=== PATIENT | female | born 1940 | race Caucasian/White ===

== ENCOUNTER 2023-12-17 06:58 | Inpatient (IN) | payer MEDICARE ==
[~2023-12-17] VITALS: Ht 162.6 cm; Wt 72.8 kg
[2023-12-17] VITALS (8 sets, daily range): BP systolic 106–152; BP diastolic 66–79; PULSE 65–75; TEMP 97.9–98.5
[~2023-12-17 06:58] MED LIST: BETAPACE 80MG80 MG PO; CEPHALEXIN500 M1 PO; DESYREL 100MG100 MG PO; ELIQUIS 5MG PO; MAGNESIUM250 M1 PO; MOBIC15 MG PO; MULTAQ400 MG PO; NORVASC 5MG5 MG/TAB PO; PRINIVIL10 MG PO; PRINZIDE 25 MG-1 TAB PO; VITAMIND3 5000 PO; ZOCOR 20MG20 MG PO
[2023-12-17] MEDS ORDERED: Morphine 4 MG/ML VIAL IV PRN ×2 (08:30→13:00)
[2023-12-17] MEDS ORDERED: NS 1,000 ML IV ONE (08:30)
[2023-12-17] MEDS ORDERED: Ondansetron 4 MG/2 ML VIAL IV ONE (08:30)
[2023-12-17 08:48] LABS: HEMATOCRIT 45.5 % (37.0-47.0); HEMOGLOBIN 15.6 g/dl (12.5-16.0); MEAN CELL VOLUME 89 fl (80.0-100.0); MEAN CORPUSCULAR HEMOGLOBIN 31 pg (27-31); MEAN CORPUSCULAR HGB CONC 34 g/dl (33.0-37.0); MEAN PLATELET VOLUME 9.4 fl (7.4-10.4); PLATELET COUNT 420 K/mm3 (130-400); RED BLOOD COUNT 5.12 M/mm3 (4.10-5.30); REDCELL DISTRIBUTION WIDTH-CV 13.2 % (11.5-14.5)
[2023-12-17 09:07] LABS: ALBUMIN 3.8 g/dL (3.4-4.8); CALCIUM 9.8 mg/dL (8.4-10.2); CREATININE, serum 0.7 mg/dL (0.57-1.11); POTASSIUM 3.8 mEq/L (3.5-4.5); TOTAL PROTEIN 7.1 g/dl (6.2-8.1)
[2023-12-17] MEDS ORDERED: NS 100 ML IV SCH (09:29)
[2023-12-17] MEDS ORDERED: Iohexol 300 - 100 ML VIAL IV ONE (09:29)
[2023-12-17 09:49] LABS: BAND 5 % (0-10); LYMPHOCYTE 6 % (20.0-51.0); NEUTROPHILS 80 % (42.0-75.2); PLATELET ESTIMATE NORMAL (NORMAL)
[2023-12-17] MEDS ORDERED: BETAPACE 80MG80 MG PO (11:23)
[2023-12-17] MEDS ORDERED: BETAPACE AF80 MG/TA1 PO (11:24)
--- NOTE | 2023-12-17 12:31 | NUR ---
PATIENT ADMITTED TO MEDICAL UNIT AT THIS TIME. ADMISSION INTAKE AND ASSESSMENT COMPLETED. MED REC UPDATED. PATIENT ORIENTED TO ROOM AND UPDATED ON PLAN OF CARE. CURRENTLY REPORTS ABDOMINAL PAIN, REQUESTING MEDICATION WHEN AVAILABLE. PATIENT REPORTS HER LAST STOOL WAS MORNING OF 12/15 IS IT WAS SLIGHTLY LOOSE. WILL CONTINUE TO MONITOR.
[2023-12-17] MEDS ORDERED: Ondansetron 4 MG/2 ML VIAL IV PRN (13:00)
[2023-12-17] MEDS ORDERED: Acetaminophen 500 MG TAB PO PRN (13:00)
--- NOTE | 2023-12-17 13:33 | NUR ---
SW met with patient to complete initial assessment for discharge planning. Patient reports to live in [place] with her [place] ([phone]). Patient sees ANNA Martinez as her PCP and uses [facility]. Patient denies having any DME and is independent with ADLs. Patient denies having DPOA assigned and declines to complete one. She states her will make decisions for her. Pt plans to return to home. Discharge plan: Home
[2023-12-17] MEDS ORDERED: hydrALAZINE 20 MG/ML 1 ML VIAL IV PRN (15:30)
--- NOTE | 2023-12-17 22:07 | NUR ---
PT RESTING IN BED, ALERT AND ORIENTEDX4. RATES PAIN 5/10 IN THE ABDOMEN. GAVE MORPHINE FOR PAIN. PT TOLERATING CLEAR LIQUID DIET. BOWEL SOUNDS AUDIBLE. PT INDEPENDENT IN ROOM. ASSESSED AND GAVE NIGHT MEDS. NO OTHER COMPLAINTS AT THIS TIME. CALL LIGHT WITHIN REACH.
[2023-12-18] VITALS (11 sets, daily range): BP systolic 106–130; BP diastolic 69–80; PULSE 64–79; TEMP 98.3–98.4
[2023-12-18 06:50] LABS: HEMATOCRIT 41.8 % (37.0-47.0); HEMOGLOBIN 14.1 g/dl (12.5-16.0); MEAN CELL VOLUME 93 fl (80.0-100.0); MEAN CORPUSCULAR HEMOGLOBIN 31 pg (27-31); MEAN CORPUSCULAR HGB CONC 34 g/dl (33.0-37.0); MEAN PLATELET VOLUME 10.2 fl (7.4-10.4); PLATELET COUNT 373 K/mm3 (130-400); RED BLOOD COUNT 4.52 M/mm3 (4.10-5.30); REDCELL DISTRIBUTION WIDTH-CV 13.5 % (11.5-14.5)
--- NOTE | 2023-12-18 07:15 | NUR ---
BEDSIDE REPORT RECIEVED AT THIS TIME. PT VOICES NO CONCERNS OR COMPLAINTS. CALL LIGHT WITHIN REACH.
[2023-12-18 07:23] LABS: CREATININE, serum 0.63 mg/dL (0.57-1.11); MAGNESIUM 1.9 mg/dL (1.6-2.6); POTASSIUM 3.5 mEq/L (3.5-4.5)
[2023-12-18 07:42] LABS: BAND 10 % (0-10); LYMPHOCYTE 9 % (20.0-51.0); NEUTROPHILS 67 % (42.0-75.2); PLATELET ESTIMATE NORMAL (NORMAL)
--- NOTE | 2023-12-18 08:03 | NUR ---
SHIFT ASSESSMENY COMPLETED AT THIS TIME. PT VOICES CONCERNS OF NAUSEA AND PAIN 5/10 LOCATED IN THE ABDOMEN. PRN MORPHINE AND ZOFRAN ADMINISTERED. NO FURTHER COMPLAINTS AT THIS TIME.
--- NOTE | 2023-12-18 09:00 | NUR ---
MORNING MEDICATIONS ADMINISTERED AT THIS TIME. PT REQUESTS JELLO AND BEEF BROTH. NO COMPLAINTS AT THIS TIME.
--- NOTE | 2023-12-18 12:03 | NUR ---
D: [employer]posite [employer] stopped by room on rounds. A: Pt was resting and content with family in the room. Pt has no needs right now, but had a great conversation with the catering cook. Family and pt appreciated the visit. P: Composite [employer] informed pt that if she needed anything from the catering cook area to let her nurse know. Composite [employer] Builder will follow up as needed.
--- NOTE | 2023-12-18 18:27 | NUR ---
PT REPORTS NAUSEA, VOMITING AND 5/10 PAIN. PRN MORPHINE AND ZOFRAN ADMINISTERED AT THIS TIME. INT IN R AC D/C'D D/T LEAKING. NEW IV STARTED IN LEFT WRIST WITH NO COMPLICATIONS. NO FURTHER COMPLAINTS AT THIS TIME.
--- NOTE | 2023-12-18 20:35 | NUR ---
Initial shift assessment done- denies pain and nausea at this time, hypoactive bowel sounds, does not want any clear liquids at this time. states 'That would definitely upset my stomach" tele on SR, No requests at this time.
[2023-12-19] VITALS (12 sets, daily range): BP systolic 119–152; BP diastolic 73–86; PULSE 69–92; TEMP 98–98.5
--- NOTE | 2023-12-19 00:12 | NUR ---
Pt called and was vomiting-- had green colored emesis, states is having abd pain 6/10 and nausea-- will give Zofran and Morphine as ordered.
[2023-12-19] MEDS ORDERED: LR 1,000 ML IV SCH (04:30)
--- NOTE | 2023-12-19 04:35 | NUR ---
Called to patients room, pt sitting in recliner with emesis basin- states shes spitting up "white phlegm",remains nauseated, states she feels like phlegm is stuck in her throat--gagging, heaves trying to get up phlegm -small scant emesis, standing up walking, trying to take sips of water to clear it up walking in room, called Rupal TRACY regarding pt , informed of not taking much po, feels like she needs to "belch", not time for more Zofran. Order for Compazine, Protonix and IV fluids of LR at 75cc/hr for just one bag. Also will give her more Morphine IV for abd pain 11/18.
[2023-12-19 06:28] LABS: HEMATOCRIT 39.9 % (37.0-47.0); HEMOGLOBIN 13.7 g/dl (12.5-16.0); MEAN CELL VOLUME 90 fl (80.0-100.0); MEAN CORPUSCULAR HEMOGLOBIN 31 pg (27-31); MEAN CORPUSCULAR HGB CONC 34 g/dl (33.0-37.0); MEAN PLATELET VOLUME 9.5 fl (7.4-10.4); PLATELET COUNT 357 K/mm3 (130-400); RED BLOOD COUNT 4.46 M/mm3 (4.10-5.30); REDCELL DISTRIBUTION WIDTH-CV 13.1 % (11.5-14.5)
[2023-12-19 06:50] LABS: ALBUMIN 3.2 g/dL (3.4-4.8); BILIRUBIN,TOTAL 0.8 mg/dL (0.2-1.2); CALCIUM 8.6 mg/dL (8.4-10.2); CREATININE, serum 0.6 mg/dL (0.57-1.11); POTASSIUM 3.1 mEq/L (3.5-4.5); TOTAL PROTEIN 6.4 g/dl (6.2-8.1)
[2023-12-19] MEDS ORDERED: Potassium Chloride 100 ML IV SCH (07:45)
[2023-12-19] MEDS ORDERED: *Potassium Replacement Protocol MC SCH (07:45)
[2023-12-19 08:01] LABS: BAND 17 % (0-10); LYMPHOCYTE 7 % (20.0-51.0); NEUTROPHILS 54 % (42.0-75.2)
[2023-12-19 08:02] LABS: OVALOCYTES 1+; PLATELET ESTIMATE NORMAL (NORMAL)
[2023-12-19] MEDS ORDERED: Pantoprazole 40 MG in NS 10 ML IV SCH (09:00)
--- NOTE | 2023-12-19 09:00 | NUR ---
PATIENT RESTING IN BED. ALERT AND ORIENTED. DAUGHTER AT BEDSIDE. SHIFT ASSESSMENT COMPLETE. DR JAIN INTO SEE PATIENT AT THIS TIME. CALL LIGHT WITHIN REACH.
[2023-12-19] MEDS ORDERED: NS 1,000 ML IV ONE (10:00)
--- NOTE | 2023-12-19 16:28 | NUR ---
THIS RN WAS NOTIFIED BY CLINICAL DOCUMENT IMPROVEMENT EDUCATOR THAT PATIENT WAS IN AFIB. THIS RN ORDERED AND EKG AND CALLED ANTHONY HERNANDEZ. PATIENT IS ASYMPTOMATIC AT THIS TIME. WILL MONITOR
--- NOTE | 2023-12-19 16:42 | NUR ---
EKG COMPLETE. PATIENT IS IN AFIB, RATE CONTROLLED. PATIENT IS ALERT, ORIENTED, AND ASYMPTOMATIC.
--- NOTE | 2023-12-19 16:51 | NUR ---
THIS NURSE NOTIFIED ANTHONY HERNANDEZ. PER DR OWUSU, CONT TO MONITOR PATIENT IS RATE CONTROLLED AND ASYMPTOMATIC. WILL MONITOR
--- NOTE | 2023-12-19 23:21 | NUR ---
patient lying in bed, alert and oriented x4. denies chest pain and shortness of breath. IV in RW is patent, site CDI with NS running at 75 ml/hr. lovenox held per orders. pt denies nausea and reports havign 3 small bowel movements with and hour and a half. maintaining NPO status. pt has no further needs, questions, or concerns at this time. ambulating with steady gait. call light within reach. will continue to monitor.
[2023-12-20] VITALS (13 sets, daily range): BP systolic 109–146; BP diastolic 75–94; PULSE 73–96; TEMP 97.9–98.3
[2023-12-20 06:08] LABS: HEMOGLOBIN 12.8 g/dl (12.5-16.0); MEAN CELL VOLUME 92 fl (80.0-100.0); MEAN CORPUSCULAR HEMOGLOBIN 31 pg (27-31); MEAN CORPUSCULAR HGB CONC 34 g/dl (33.0-37.0); MEAN PLATELET VOLUME 9.7 fl (7.4-10.4); PLATELET COUNT 313 K/mm3 (130-400); RED BLOOD COUNT 4.14 M/mm3 (4.10-5.30); REDCELL DISTRIBUTION WIDTH-CV 12.9 % (11.5-14.5)
[2023-12-20 06:25] LABS: CALCIUM 8.3 mg/dL (8.4-10.2); CREATININE, serum 0.53 mg/dL (0.57-1.11); POTASSIUM 3.4 mEq/L (3.5-4.5)
[2023-12-20] MEDS ORDERED: Potassium Chloride 100 ML IV SCH (07:45)
[2023-12-20 07:56] LABS: BAND 6 % (0-10); EOSINOPHIL 4 % (0-4); LYMPHOCYTE 23 % (20.0-51.0); NEUTROPHILS 42 % (42.0-75.2); PLATELET ESTIMATE NORMAL (NORMAL)
--- NOTE | 2023-12-20 08:00 | NUR ---
Pt. resting in bed w/ daughter at bedside. Administered scheduled meds per AUG. Pt.'s daughter inquired about plans to advance diet before pt. eventually discharges. IRVING Nevarez, addressed family questions. Performed shift assessment. No outstanding findings. Bowel sounds were audible and pt. reports having multiple bowel movements throughout the night. Minor nonpitting edema noted to BLE. Pt. denies pain at this time. No further requests or complaints. Call light in reach.
--- NOTE | 2023-12-20 12:14 | NUR ---
Pt.'s daughter inquired about plan of care for pt's Afib; requested to speak to Dr. Pérez. Dr. Pérez notified.
--- NOTE | 2023-12-20 15:26 | NUR ---
Inspection Clerk spoke with RN and Hospitalist about ordering PT/OT evaluation.
--- NOTE | 2023-12-20 16:53 | NUR ---
MURALI SCDs have not been worn today. Pt. has been ambulating the halls and room throughout the day. Encourage SCDs at night
--- NOTE | 2023-12-20 20:00 | NUR ---
Initial shift assessment done- denies pain, denies SOB, states feeling so much better, abd soft, active bowel sounds, states had alot of stools last night and did not get sleep , so hoping to get some sleep tonight. Tele on, afib, rate 96/min., refusing SCD,s . Up to bathroom on own, very steady on feet. No requests,does not want any additional Full liquids tonight-states just had supper.
[2023-12-21] VITALS (17 sets, daily range): BP systolic 121–158; BP diastolic 65–88; PULSE 66–88; TEMP 97.7–98.7
--- NOTE | 2023-12-21 03:30 | NUR ---
States she is not sleeping much tonight- feeling hot/than cold, states having the night sweats-- would like her blood sugar checked- BS 91 at this time, VSS. She will talk with the doctor this morning about resumimg her trazadone if she stays another night-
[2023-12-21 07:24] LABS: POTASSIUM 3.5 mEq/L (3.5-4.5)
[2023-12-21] MEDS ORDERED: Potassium Bicarbonate/Citrate 20 MEQ Effervescent TAB PO SCH (07:45)
--- NOTE | 2023-12-21 08:00 | NUR ---
Pt. resting in bed w/ eyes closed upon entry; family at bedside. Pt. easily aroused. Administered scheduled meds per AUG. IRVING Nevarez, continued IV potassium replacement. Pt. c/o irritation at IV site. No signs of redness or drainage. IRVING Nevarez, slowed IV fusion rate and applied warm compress to IV site. Pt reports immediate improvement. Downloaded pt.'s loop recorder per cardiology request. Performed shift assessment. Pt.'s affect appears less energetic than yesterday (12/19); reports poor sleep the previous night. Irregular heart rhythm noted, but rate WNL. All other findings WNL. No further requests or complaints at this time. Call light in reach.
[2023-12-21 08:38] LABS: CALCIUM 8.5 mg/dL (8.4-10.2); CREATININE, serum 0.52 mg/dL (0.57-1.11); MAGNESIUM 1.8 mg/dL (1.6-2.6)
[2023-12-21] MEDS ORDERED: Magnesium Sulfate 2 GM/50 ML IV SOLN IV SCH (09:30)
--- NOTE | 2023-12-21 10:38 | NUR ---
body technician called to report pt. was bradycardic at 47 bpm at 1021. This nurse checked on pt. Pt. resting in bed w/ eyes closed; respirations are even and unlabored. Telemetry notified of pt.'s condition.
--- NOTE | 2023-12-21 12:02 | NUR ---
#20 started to right wrist x1 attempt. IV to RFA d/c'd due to patient c/o burning and pain to site. Patient tolerated both well.
--- NOTE | 2023-12-21 12:14 | NUR ---
Pt. to [facility] wh[facility] for cardioversion, via bed jules/ IRVING Mayberry.
--- NOTE | 2023-12-21 12:49 | NUR ---
Please see moderate sedation flowsheet in paper chart for record of cardioversion with . Sada is waking up now after successful cardioversion with 200 joules at 1244. will monitor until appropriate for transfer to floor.
--- NOTE | 2023-12-21 12:58 | NUR ---
Health Facilities Surveyor met with patient to present and review IM. Patient has multiple family members at bedside. Patient verbalized understanding and provided signature. SW placed form in chart and provided copy to patient. Discharge Plan: Home
[2023-12-21] MEDS ORDERED: Apixaban 5 MG TABLET PO SCH (13:00)
[2023-12-21] MEDS ORDERED: BETAPACE 120MG120 MG PO (13:04)
[2023-12-21] MEDS ORDERED: Hydrocortisone 1% Cream 30 GM TUBE TP PRN (13:15)
--- NOTE | 2023-12-21 13:28 | NUR ---
Sada is transferred back to medical [address] after cardioversion with Dr. Estrada. Sada reports feeling "good", skin is pwd, resp reg and unlabored. BS report to Nicole RN and Geri RN. we talked about using hydrocortisone as is often ordered for mild larry on chest and back. Sada is hooked up for post procedure monitoring. vss. handoff of care to Nicole VILLATORO and Geri RN.
--- NOTE | 2023-12-21 13:28 | NUR ---
Pt. returned to room from cardioversion accompanied by IRVING Santo. VS stable. Pt.'s mood and affect seem improved. Pt. has erythma to medial aspect of chest and back at the earlier position of the electrodes, but denies pain. Hospitalist, Dr. Pérez notified. New orders received.
--- NOTE | 2023-12-21 16:45 | NUR ---
Provided education per discharge summary to pt. and her . Pt. and express understanding of education. Discontinued IV; catheter intact. Assisted pt. w/ dressing. Pt. walked independently to wheelchair. PCTDeanne, accompanied pt. and her to POV.
[2023-12-21] MEDS ORDERED: traZODone 50 MG TAB PO SCH (21:00)
== END 2023-12-21 16:45 | disposition home or self-care (01) | DRG 389 ==
LOC: COL.ER 06:58 → MEDICAL 10:28 → EDBEDREQTM 11:31 → MEDICAL 12:05
PROVIDERS: Internal Medicine; Personal Emergency Response Attendant; Physician Assistant; Surgery; ADMIT Internal Medicine
PROC: 5A2204Z Restoration of Cardiac Rhythm, Single (ICD-10-PCS; principal; 2023-12-21)
DX: K56.609 Unspecified intestinal obstruction, unspecified as to partial versus complete obstruction (principal); E87.1 Hypo-osmolality and hyponatremia; I10 Essential (primary) hypertension; I48.0 Paroxysmal atrial fibrillation; Z66 Do not resuscitate; D72.829 Elevated white blood cell count, unspecified; E78.5 Hyperlipidemia, unspecified; G47.00 Insomnia, unspecified; E87.6 Hypokalemia; H26.9 Unspecified cataract; K80.20 Calculus of gallbladder without cholecystitis without obstruction; Z87.891 Personal history of nicotine dependence; Z90.49 Acquired absence of other specified parts of digestive tract; Z79.01 Long term (current) use of anticoagulants; Z79.899 Other long term (current) drug therapy; Z85.038 Personal history of other malignant neoplasm of large intestine; Z90.710 Acquired absence of both cervix and uterus; Z95.818 Presence of other cardiac implants and grafts; Z23 Encounter for immunization
CPT/HCPCS: J0780; J1650; J2270; J2405; J2470; J3475; J3480; J7030; J7120; Q9967